=== PATIENT | female | born 1955 | race American Indian/Alaskan Native ===

== ENCOUNTER 2018-08-12 13:47 | Inpatient (IN) | payer MEDICARE ==
--- NOTE | 2018-08-12 14:17 | Emergency Department Report ---
Blank Doc - Documentation Documentation: this is a 63-year-old female that presents with CP and SOB. Was sent by PCP. This initial assessment/diagnostic orders/clinical plan/treatment(s) is/are subject to change based on patient's health status, clinical progression and re- assessment by fellow clinical providers in the ED. Further treatment and workup at subsequent clinical providers discretion. Patient/guardians urged not to elope from the ED as their condition may be serious if not clinically assessed and managed. Initial orders include: 1- Patient sent to MAIN ED for further evaluation and treatment 2- labs 3- EKg 4- CXR
[2018-08-12 14:42] LABS: Basophils % (Auto) 0.5 % (0.0-1.8); Eosinophils # (Auto) 0.1 K/mm3 (0.0-0.4); Eosinophils % (Auto) 2.1 % (0.0-4.3); Hematocrit 39.5 % (30.3-42.9); Hemoglobin 12.2 gm/dl (10.1-14.3); Lymphocytes # (Auto) 0.9 K/mm3 (1.2-5.4); Mean Corpuscular HGB Conc 31 % (30-34); Mean Corpuscular Volume 74 fl (79-97); Monocytes # (Auto) 0.6 K/mm3 (0.0-0.8); Platelet Count 307 K/mm3 (140-440); Red Blood Count 5.35 M/mm3 (3.65-5.03)
[2018-08-12 14:49] LABS: Red Cell Distribution Width 21.3 % (13.2-15.2)
[2018-08-12 14:54] LABS: INR 1.13 (0.87-1.13)
[2018-08-12 14:55] LABS: Partial Thromboplastin Time 33.2 Sec. (24.2-36.6)
--- NOTE | 2018-08-12 16:02 | XRay Report ---
PROCEDURE: XR CHEST ROUTINE 2V TECHNIQUE: PA and lateral views of the chest HISTORY: Dyspnea COMPARISONS: Chest x-ray dated August 08, 2017 FINDINGS: There is coarsening of the interstitial markings in both lungs with patchy areas of pulmonary consoli dation in the perihilar regions bilaterally and lung bases bilaterally. There is no evidence of pneumothorax and no definite evidence of pleural effusion. The cardiac silhouette is enlarged. There is prominence of the pulmonary venous vasculature consistent with pulmonary venous congestion. The thoracic aorta is tortuous with atherosclerotic vascular calcification. The bony structures are unremarkable. IMPRESSION: 1. Enlarged cardiac silhouette with bilateral interstitial and airspace process and evidence of pulmo nary venous congestion. This is most suggestive of CHF. A component of an infectious process cannot e ntirely be excluded. This document is electronically signed by Belkis Deng MD., August 12 2018 04:00:37 PM ET
[2018-08-12 16:10] LABS: Creatine Kinase MB 2.4 ng/mL (0.0-4.0)
[2018-08-12 16:11] LABS: Alanine Aminotransferase 9 units/L (7-56); Albumin 3.6 g/dL (3.9-5); BUN/Creatinine Ratio 10; Blood Urea Nitrogen 9 mg/dL (7-17); Calcium 8.8 mg/dL (8.4-10.2); Hemolysis Index 0
[2018-08-12] MEDS ORDERED: LASIX IV ONE ×2 (21:02→23:25)
[2018-08-12] MEDS ORDERED: BABY ASPIRIN PO ONE (21:03)
--- NOTE | 2018-08-12 21:03 | Emergency Department Report ---
ED General Adult HPI - General Chief complaint: Dyspnea/Respdistress Stated complaint: SOB/ELEVATED HEART RATE Time Seen by Provider: 08/12/18 14:16 Source: patient, RN notes reviewed, old records reviewed Limitations: Physical Limitation, Other (patient is a poor historian) - History of Present Illness Initial comments: This is a 63-year-old female. The patient has a past medical history of chronic pulmonary hypertension, chronic respiratory failure, on home oxygen, congestive heart failure, cardiomyopathy, ejection fraction 40-45%, cardiac catheterization in February 2018, which demonstrated pulmonary hypertension, schizophrenia, now presenting to the emergency room with abdominal distention, lower extremity swelling, shortness of breath. She reports the symptoms started today. She reports that they're constant. She reports compliance with her medications. She denies dietary indiscretions. She denies physical pain, fevers, admits to cough. She has chronic orthopnea. She still complained of headache or neck pain, denies chest pain, reports abdominal swelling, but denies abdominal pain, and endorses lower extremity swelling without pain. -: Gradual Severity scale (0 -10): 0 Consistency: constant Improves with: rest Worsens with: movement Associated Symptoms: shortness of breath - Related Data Home Medications Medication Instructions Recorded Confirmed Last Taken Tadalafil (Nf) [Adcirca (Nf)] 40 mg PO QHS 08/08/17 02/20/18 02/19/18 Ambrisentan [Letairis] 10 mg PO QAM 08/09/17 08/12/18 02/20/18 Allopurinol 300 mg PO QHS 02/20/18 08/12/18 02/19/18 Benztropine [Cogentin] 2 mg PO BID 02/20/18 02/20/18 02/20/18 06:30 Cholecalciferol (Vitamin D3) 2,000 unit PO QDAY 02/20/18 02/20/18 02/19/18 [Vitamin D3 2,000 UNIT CAP] Furosemide [Lasix TAB] 20 mg PO PRN PRN 02/20/18 02/20/18 02/19/18 Haloperidol [Haldol] 10 mg PO QHS 02/20/18 08/12/18 02/19/18 Ibuprofen [Ibu] 800 mg PO TID PRN 02/20/18 02/20/18 Unknown Magnesium Oxide [Mag-Ox] 400 mg PO QPM 02/20/18 08/12/18 02/19/18 Multivitamin/Iron/Folic Acid 1 each PO QPM 02/20/18 08/12/18 02/19/18 [Centrum Adults Tablet] [place]-3S/Dha/Epa/Fish Oil [[place]-3 1 each PO DAILY 02/20/18 08/12/18 02/19/18 Fish Oil 1,000 mg Sfgl] Ambrisentan [Letairis] 10 mg PO 08/12/18 Unknown Colchicine 0.6 mg PO 08/12/18 Unknown Cyanocobalamin (Vitamin B-12) 500 mcg 08/12/18 Unknown [Vitamin B-12] Digoxin [Lanoxin] 0.125 mg PO Q48HR 08/12/18 08/12/18 Unknown LORazepam [Ativan] 1 mg PRN 08/12/18 08/12/18 Unknown Paxil 10 mg 08/12/18 Unknown Riociguat [Adempas] 2.5 mg PO 08/12/18 Unknown Torsemide [Demadex] 40 mg PO 08/12/18 Unknown Previous Rx's Medication Instructions Recorded Last Taken Type Aspirin [Aspirin BABY CHEW TAB] 81 mg PO QDAY #30 tab.chew 01/20/17 02/20/18 06:30 Rx Esomeprazole Magnesium [NexIUM] 40 mg PO QDAY #30 capsule.dr 01/20/17 02/20/18 06:30 Rx Digoxin [Lanoxin] 0.125 mg PO Q48HR@1700 #15 tablet 08/12/17 02/18/18 Rx Letairis 10 mg PO QDAY 08/12/17 02/20/18 06:30 Rx PARoxetine [Paxil] 10 mg PO DAILY #30 tablet 08/12/17 02/20/18 06:30 Rx Tadalafil 40 mg PO QDAY 08/12/17 02/19/18 Rx Allergies Allergy/AdvReac Type Severity Reaction Status Date / Time No Known Allergies Allergy Verified 08/08/17 13:29 ED Review of Systems ROS: Stated complaint: SOB/ELEVATED HEART RATE Other details as noted in HPI Constitutional: malaise Eyes: denies: vision change ENT: congestion Respiratory: cough, shortness of breath, SOB with exertion, SOB at rest, wheezing Cardiovascular: edema. denies: chest pain Gastrointestinal: denies: nausea, vomiting Genitourinary: denies: dysuria Musculoskeletal: arthralgia, myalgia, other (lower extremity swelling) Skin: denies: lesions Neurological: weakness Psychiatric: anxiety ED Past Medical Hx - Past Medical History Hx Hypertension: Yes (pulm. Htn) Hx Heart Attack/AMI: No Hx Congestive Heart Failure: Yes (new onset diagnosis with this admission) Hx Diabetes: No Hx Arthritis: Yes (polyarticular) Hx Psychiatric Treatment: Yes (schizophrenia) Hx Asthma: No Hx COPD: No Hx HIV: No Additional medical history: psoryosis. esophageal - Surgical History Additional Surgical History: esophageal - Social History Smoking Status: Never Smoker Substance Use Type: None - Medications Home Medications: Home Medications Medication Instructions Recorded Confirmed Last Taken Type Aspirin [Aspirin BABY CHEW TAB] 81 mg PO QDAY #30 tab.chew 01/20/17 08/12/18 02/20/18 06:30 Rx Esomeprazole Magnesium [NexIUM] 40 mg PO QDAY #30 capsule. 01/20/17 08/12/18 02/20/18 06:30 Rx Tadalafil (Nf) [Adcirca (Nf)] 40 mg PO QHS 08/08/17 02/20/18 02/19/18 History Ambrisentan [Letairis] 10 mg PO QAM 08/09/17 08/12/18 02/20/18 History Digoxin [Lanoxin] 0.125 mg PO Q48HR@1700 #15 tablet 08/12/17 08/12/18 02/18/18 Rx Letairis 10 mg PO QDAY 08/12/17 02/20/18 02/20/18 06:30 Rx PARoxetine [Paxil] 10 mg PO DAILY #30 tablet 08/12/17 08/12/18 02/20/18 06:30 Rx Tadalafil 40 mg PO QDAY 08/12/17 02/20/18 02/19/18 Rx Allopurinol 300 mg PO QHS 02/20/18 08/12/18 02/19/18 History Benztropine [Cogentin] 2 mg PO BID 02/20/18 02/20/18 02/20/18 06:30 History Cholecalciferol (Vitamin D3) 2,000 unit PO QDAY 02/20/18 02/20/18 02/19/18 History [Vitamin D3 2,000 UNIT CAP] Furosemide [Lasix TAB] 20 mg PO PRN PRN 02/20/18 02/20/18 02/19/18 History Haloperidol [Haldol] 10 mg PO QHS 02/20/18 08/12/18 02/19/18 History Ibuprofen [Ibu] 800 mg PO TID PRN 02/20/18 02/20/18 Unknown History Magnesium Oxide [Mag-Ox] 400 mg PO QPM 02/20/18 08/12/18 02/19/18 History Multivitamin/Iron/Folic Acid 1 each PO QPM 02/20/18 08/12/18 02/19/18 History [Centrum Adults Tablet] [place]-3S/Dha/Epa/Fish Oil [[place]-3 1 each PO DAILY 02/20/18 08/12/18 02/19/18 History Fish Oil 1,000 mg Sfgl] Ambrisentan [Letairis] 10 mg PO 08/12/18 Unknown History Colchicine 0.6 mg PO 08/12/18 Unknown History Cyanocobalamin (Vitamin B-12) 500 mcg 08/12/18 Unknown History [Vitamin B-12] Digoxin [Lanoxin] 0.125 mg PO Q48HR 08/12/18 08/12/18 Unknown History LORazepam [Ativan] 1 mg PRN 08/12/18 08/12/18 Unknown History Paxil 10 mg 08/12/18 Unknown History Riociguat [Adempas] 2.5 mg PO 08/12/18 Unknown History Torsemide [Demadex] 40 mg PO 08/12/18 Unknown History ED Physical Exam - General Limitations: Physical Limitation General appearance: alert, anxious, in distress, obese - Head Head exam: Present: atraumatic, normocephalic - Eye Eye exam: Present: normal appearance, EOMI - ENT ENT exam: Present: normal exam, normal orophraynx, mucous membranes moist, normal external ear exam - Neck Neck exam: Present: normal inspection, full ROM. Absent: tenderness, meningismus - Respiratory Respiratory exam: Present: rales, rhonchi. Absent: respiratory distress - Cardiovascular Cardiovascular Exam: Present: regular rate, normal rhythm, normal heart sounds. Absent: bradycardia, tachycardia, irregular rhythm, systolic murmur, diastolic murmur, rubs, gallop - GI/Abdominal GI/Abdominal exam: Present: soft, distended, other (abdominal anasarca is appreciated). Absent: tenderness, guarding, rebound, rigid, pulsatile mass - Extremities Exam Extremities exam: Present: normal inspection, full ROM, pedal edema, other (2+ pulses noted in the bilateral upper, lower extremities. Compartments soft. No long bony tenderness. The pelvis is stable.). Absent: calf tenderness - Back Exam Back exam: Present: normal inspection, full ROM. Absent: tenderness, CVA tenderness (R), paraspinal tenderness, vertebral tenderness - Neurological Exam Neurological exam: Present: alert, other (Extraocular movements intact. Tongue midline. No facial droop. Facial sensation intact to light touch in the V1, V2, V3 distribution bilaterally. 5 and 5 strength in 4 extremities.. Sensation is intact to light touch in 4 extremities.). Absent: motor sensory deficit - Psychiatric Psychiatric exam: Present: anxious - Skin Skin exam: Present: warm, dry, intact, normal color. Absent: rash ED Course Vital Signs 08/12/18 08/12/18 08/12/18 14:12 20:06 20:46 Temperature 97.6 F 98.2 F Pulse Rate 99 H 116 H 124 H Respiratory 22 22 16 Rate Blood Pressure 111/55 135/62 O2 Sat by Pulse 92 88 90 Oximetry 08/12/18 08/12/18 08/12/18 20:48 20:50 20:52 Temperature Pulse Rate 116 H 110 H 111 H Respiratory 16 19 15 Rate Blood Pressure 128/68 128/68 128/68 O2 Sat by Pulse 89 93 91 Oximetry 08/12/18 08/12/18 08/12/18 20:54 20:56 20:57 Temperature 98.3 F Pulse Rate 112 H 116 H Respiratory 16 21 Rate Blood Pressure 128/68 128/68 O2 Sat by Pulse 94 Oximetry 08/12/18 08/12/18 08/12/18 20:58 22:06 22:08 Temperature Pulse Rate 106 H 111 H Respiratory 24 20 17 Rate Blood Pressure 116/53 116/53 O2 Sat by Pulse 90 95 91 Oximetry 08/12/18 08/12/18 08/12/18 22:10 22:12 22:14 Temperature Pulse Rate 119 H 125 H 117 H Respiratory 16 18 15 Rate Blood Pressure 116/53 116/53 116/53 O2 Sat by Pulse 96 96 97 Oximetry 08/12/18 08/12/18 08/12/18 22:16 22:18 22:20 Temperature Pulse Rate 108 H 109 H 113 H Respiratory 19 15 15 Rate Blood Pressure 116/53 116/53 116/53 O2 Sat by Pulse 94 94 96 Oximetry 08/12/18 08/12/18 08/12/18 22:22 22:24 22:26 Temperature Pulse Rate 111 H 111 H 107 H Respiratory 14 13 16 Rate Blood Pressure 116/53 116/53 116/53 O2 Sat by Pulse 97 97 96 Oximetry 08/12/18 08/12/18 08/12/18 22:28 22:30 22:32 Temperature Pulse Rate 108 H 105 H 106 H Respiratory 16 17 14 Rate Blood Pressure 116/53 115/68 115/68 O2 Sat by Pulse 98 96 97 Oximetry 08/12/18 08/12/18 08/12/18 22:34 22:36 22:38 Temperature Pulse Rate 118 H 113 H 113 H Respiratory 16 16 17 Rate Blood Pressure 115/68 115/68 115/68 O2 Sat by Pulse 98 96 96 Oximetry 08/12/18 08/12/18 08/12/18 22:40 22:42 22:44 Temperature Pulse Rate 121 H 116 H 122 H Respiratory 15 28 H 17 Rate Blood Pressure 115/68 115/68 115/68 O2 Sat by Pulse 95 90 92 Oximetry 08/12/18 08/12/18 08/12/18 22:46 22:48 22:50 Temperature Pulse Rate 122 H 129 H 116 H Respiratory 16 22 16 Rate Blood Pressure 115/68 115/68 115/68 O2 Sat by Pulse 93 72 L 87 Oximetry 08/12/18 08/12/18 08/12/18 22:52 22:54 22:56 Temperature Pulse Rate 118 H 124 H 126 H Respiratory 17 18 18 Rate Blood Pressure 115/68 115/68 115/68 O2 Sat by Pulse 88 94 90 Oximetry 08/12/18 08/12/18 08/12/18 22:58 23:00 23:02 Temperature Pulse Rate 113 H 117 H 120 H Respiratory 17 15 17 Rate Blood Pressure 115/68 128/69 128/69 O2 Sat by Pulse 96 94 95 Oximetry 08/12/18 08/12/18 08/12/18 23:04 23:06 23:08 Temperature Pulse Rate 107 H 123 H 126 H Respiratory 16 17 18 Rate Blood Pressure 128/69 128/69 128/69 O2 Sat by Pulse 94 95 93 Oximetry 08/12/18 08/12/18 08/12/18 23:10 23:12 23:14 Temperature Pulse Rate 116 H 113 H 113 H Respiratory 16 15 17 Rate Blood Pressure 128/69 128/69 128/69 O2 Sat by Pulse 91 93 93 Oximetry 08/12/18 08/12/18 08/12/18 23:16 23:18 23:20 Temperature Pulse Rate 122 H 105 H 108 H Respiratory 15 19 12 Rate Blood Pressure 128/69 128/69 128/69 O2 Sat by Pulse 95 95 96 Oximetry 08/12/18 08/12/18 08/12/18 23:22 23:24 23:26 Temperature Pulse Rate 121 H 109 H 115 H Respiratory 15 14 15 Rate Blood Pressure 128/69 128/69 128/69 O2 Sat by Pulse 95 96 97 Oximetry 08/12/18 08/12/18 08/12/18 23:28 23:30 23:32 Temperature Pulse Rate 120 H 106 H 107 H Respiratory 19 14 17 Rate Blood Pressure 128/69 121/60 121/60 O2 Sat by Pulse 95 94 96 Oximetry 08/12/18 08/12/18 08/12/18 23:34 23:36 23:38 Temperature Pulse Rate 106 H 115 H 113 H Respiratory 15 15 14 Rate Blood Pressure 121/60 121/60 121/60 O2 Sat by Pulse 97 94 96 Oximetry 08/12/18 08/12/18 08/12/18 23:40 23:42 23:44 Temperature Pulse Rate 106 H 109 H 121 H Respiratory 16 14 15 Rate Blood Pressure 121/60 121/60 121/60 O2 Sat by Pulse 97 95 97 Oximetry ED Medical Decision Making - Lab Data Result diagrams: 08/12/18 14:22 08/12/18 14:22 Vital Signs 08/12/18 08/12/18 08/12/18 14:12 20:06 20:46 Temperature 97.6 F 98.2 F Pulse Rate 99 H 116 H 124 H Respiratory 22 22 16 Rate Blood Pressure 111/55 135/62 O2 Sat by Pulse 92 88 90 Oximetry 08/12/18 08/12/18 08/12/18 20:48 20:50 20:52 Temperature Pulse Rate 116 H 110 H 111 H Respiratory 16 19 15 Rate Blood Pressure 128/68 128/68 128/68 O2 Sat by Pulse 89 93 91 Oximetry 08/12/18 08/12/18 08/12/18 20:54 20:56 20:57 Temperature 98.3 F Pulse Rate 112 H 116 H Respiratory 16 21 Rate Blood Pressure 128/68 128/68 O2 Sat by Pulse 94 Oximetry 08/12/18 20:58 Temperature Pulse Rate Respiratory 24 Rate Blood Pressure O2 Sat by Pulse 90 Oximetry Lab Results 08/12/18 08/12/18 08/12/18 Range/Units 14:22 14:22 14:22 WBC 5.2 (4.5-11.0) K/mm3 RBC 5.35 H (3.65-5.03) M/mm3 Hgb 12.2 (10.1-14.3) gm/dl Hct 39.5 (30.3-42.9) % MCV 74 L (79-97) fl MCH 23 L (28-32) pg MCHC 31 (30-34) % RDW 21.3 H (13.2-15.2) % Plt Count 307 (140-440) K/mm3 Lymph % (Auto) 18.0 (13.4-35.0) % Sanders % (Auto) 12.0 H (0.0-7.3) % Eos % (Auto) 2.1 (0.0-4.3) % Baso % (Auto) 0.5 (0.0-1.8) % Lymph # 0.9 L (1.2-5.4) K/mm3 Sanders # 0.6 (0.0-0.8) K/mm3 Eos # 0.1 (0.0-0.4) K/mm3 Baso # 0.0 (0.0-0.1) K/mm3 Seg Neutrophils % 67.4 (40.0-70.0) % Seg Neutrophils # 3.5 (1.8-7.7) K/mm3 PT 15.2 H (12.2-14.9) Sec. INR 1.13 (0.87-1.13) APTT 33.2 (24.2-36.6) Sec. Sodium 134 L (137-145) mmol/L Potassium 3.4 L (3.6-5.0) mmol/L Chloride 90.3 L (98-107) mmol/L Carbon Dioxide 30 (22-30) mmol/L Anion Gap 17 mmol/L BUN 9 (7-17) mg/dL Creatinine 0.9 (0.7-1.2) mg/dL Estimated GFR > 60 ml/min BUN/Creatinine Ratio 10 % Glucose 96 (65-100) mg/dL Calcium 8.8 (8.4-10.2) mg/dL Total Bilirubin 1.00 (0.1-1.2) mg/dL AST 20 (5-40) units/L ALT 9 (7-56) units/L Alkaline Phosphatase 144 H (35-129) units/L Total Creatine Kinase 57 (30-135) units/L CK-MB (CK-2) 2.4 (0.0-4.0) ng/mL CK-MB (CK-2) Rel Index 4.2 H (0-4) Troponin T < 0.010 (0.00-0.029) ng/mL Total Protein 6.9 (6.3-8.2) g/dL Albumin 3.6 L (3.9-5) g/dL Albumin/Globulin Ratio 1.1 % - EKG Data -: EKG Interpreted by Pa EKG shows normal: sinus rhythm Rate: normal - EKG Data 08/12/18 23:54 EKG today shows a sinus tachycardia, 107 8 for minutes, borderline rightward axis, motion artifact, low voltage, prolonged CA interval, premature ventricular complex, not having chest pain, not consistent with ST elevation myocardial infarction, nonspecific ST abnormalities, appears grossly unchanged from prior EKG from 02/20/2018. - Radiology Data Radiology results: report reviewed, image reviewed Print Report Referring Physician: ERICH FARAH Patient Name: CORAZON QUINONES Date of : 1955 Sex: Female Report Date: 2018-08-12 Report Status: Finalized Findings [facility] [address] [place] [address] XRay Report Signed Patient: CORAZON QUINONES MR#: [id number] : 1955 Acct:[id number] Age/Sex: 63 / F ADM Date: 08/12/18 Loc: ED Attending Dr: Ordering Physician: ERICH FARAH NP Date of Service: 08/12/18 Procedure(s): XR chest routine 2V Accession Number(s): [id number] cc: ERICH FARAH NP Fluoro Time In Minutes: PROCEDURE: XR CHEST ROUTINE 2V TECHNIQUE: PA and lateral views of the chest HISTORY: Dyspnea COMPARISONS: Chest x-ray dated August 08, 2017 FINDINGS: There is coarsening of the interstitial markings in both lungs with patchy areas of pulmonary consolidation in the perihilar regions bilaterally and lung bases bilaterally. There is no evidence of pneumothorax and no definite evidence of pleural effusion. The cardiac silhouette is enlarged. There is prominence of the pulmonary venous vasculature consistent with pulmonary venous congestion. The thoracic aorta is tortuous with atherosclerotic vascular calcification. The bony structures are unremarkable. IMPRESSION: 1. Enlarged cardiac silhouette with bilateral interstitial and airspace process and evidence of pulmonary venous congestion. This is most suggestive of CHF. A component of an infectious process cannot entirely be excluded. This document is electronically signed by Belkis Deng MD., August 12 2018 04:00:37 PM ET Transcribed By: ED Dictated By: BELKIS DENG MD Electronically Authenticated By: BELKIS DENG MD Signed Date/Time: 08/12/18 1602 DD/ 1530 TD/TT: 08/12/18 1531 - Medical Decision Making Differential diagnosis, including but not limited to: Pulmonary hypertension, right-sided heart failure, cor pulmonale, congestive heart failure, fluid overload Assessment and plan: 63-year-old female with clinical evidence of fluid overload, manifest by abdominal anasarca, lower extremity edema, hypoxia, crackles, rales, x-ray of the chest findings. Do not clinically suspect pneumonia or infectious etiology at this time. She has no pain at this time. She reports no pulmonary embolus or DVT risk factors, and I find the patient to be low risk by well's criteria. [facility] accounts payable representative, Dr. Zenon Sears, who agrees with admission, diuresis, and indicates his group can and will follow in consultation. Contacted Hospital physician, Dr. Jany Sears, who has agreed to do the patient to the medical service for congestive heart failure. Discussed admission with the patient, who verbalizes understanding, and who is amenable to this plan of care this time. Critical Care Time: Yes Critical care time in (mins) excluding proc time.: 45 Critical care attestation.: If time is entered above; I have spent that time in minutes in the direct care of this critically ill patient, excluding procedure time. ED Disposition Clinical Impression: Pleural effusion, Anasarca, Pulmonary hypertension, Cardiomyopathy, Cor pulmonale, Hypoxia, Dyspnea Disposition: DC-09 OP ADMIT IP TO THIS HOSP Is pt being admited?: Yes Does the pt Need Aspirin: Yes Condition: Fair
--- NOTE | 2018-08-12 22:21 | History and Physical Report ---
History of Present Illness Date of examination: 08/12/18 History of present illness: 63-year-old woman is here for hypertension, diabetes, schizophrenia, CHF, pulmonary hypertension comes emergency room with complaints of shortness of breath, swelling of her legs, weight gain 1 week. She is noncompliant with fluid intake Review of systems Constitutional: no weight loss, chills, fever Ears, eyes, nose, mouth and throat: no nasal congestion, no nasal discharge, no sinus pressure, no vision change, no red eye. Neck: No neck pain or rigidity. Cardiovascular: no palpitations, chest pain Respiratory: no cough Gastrointestinal: no hematochezia, abdominal pain Genitourinary : no frequency , no hematuria Musculoskeletal: no joint swelling or muscle ache Integumentary: no rash, no pruritis Neurological: no parathesias, no focal weakness Endocrine: no cold or heat intolerance, no polyuria or polydipsia Hematologic/Lymphatic: no easy bruising, no easy bleeding, no gland swelling Allergic/Immunologic: no urticaria, no angioedema. PAST MEDICAL HISTORY:hypertension, diabetes, schizophrenia, CHF, pulmonary hypertension PAST SURGICAL HISTORY: None FAmILY HISTORY: Hypertension SOCIAL HISTORY: no smoking, alcohol or drugs Medications and Allergies Allergies Allergy/AdvReac Type Severity Reaction Status Date / Time No Known Allergies Allergy Verified 08/08/17 13:29 Home Medications Medication Instructions Recorded Confirmed Last Taken Type Aspirin [Aspirin BABY CHEW TAB] 81 mg PO QDAY #30 tab.chew 01/20/17 08/12/18 02/20/18 06:30 Rx Esomeprazole Magnesium [NexIUM] 40 mg PO QDAY #30 capsule. 01/20/17 08/12/18 02/20/18 06:30 Rx Ambrisentan [Letairis] 10 mg PO QHS 08/09/17 08/13/18 02/20/18 History Digoxin [Lanoxin] 0.125 mg PO Q48HR@1700 #15 tablet 08/12/17 08/13/18 08/11/18 21:00 Rx PARoxetine [Paxil] 10 mg PO DAILY #30 tablet 08/12/17 08/12/18 02/20/18 06:30 Rx Allopurinol 300 mg PO QHS 02/20/18 08/12/18 02/19/18 History Benztropine [Cogentin] 2 mg PO DAILY 02/20/18 08/13/18 02/20/18 06:30 History Cholecalciferol (Vitamin D3) 2,000 unit PO QDAY 02/20/18 08/13/18 02/19/18 History [Vitamin D3 2,000 UNIT CAP] Haloperidol [Haldol] 10 mg PO QHS 02/20/18 08/12/18 02/19/18 History Ibuprofen [Ibu] 800 mg PO TID PRN 02/20/18 08/13/18 Unknown History Magnesium Oxide [Mag-Ox] 400 mg PO QPM 02/20/18 08/12/18 02/19/18 History Multivitamin/Iron/Folic Acid 1 each PO QPM 02/20/18 08/12/18 02/19/18 History [Centrum Adults Tablet] [place]-3S/Dha/Epa/Fish Oil [[place]-3 1 each PO DAILY 02/20/18 08/12/18 02/19/18 History Fish Oil 1,000 mg Sfgl] Colchicine 0.6 mg PO PRN PRN 08/12/18 08/13/18 Unknown History Cyanocobalamin (Vitamin B-12) 500 mcg PO DAILY 08/12/18 08/13/18 Unknown History [Vitamin B-12] LORazepam [Ativan] 1 mg PRN 08/12/18 08/12/18 Unknown History Paxil 10 mg PO DAILY 08/12/18 08/13/18 Unknown History Riociguat [Adempas] 2.5 mg PO TID 08/12/18 08/13/18 Unknown History Digoxin [Lanoxin] 0.125 mg PO Q48H tablet 08/16/18 Unknown Rx Torsemide [Demadex] 20 mg PO DAILY #30 tablet 08/16/18 Unknown Rx Exam - Physical Exam Narrative exam: Gen. appearance: Patient lying in bed in no acute distress HEENT: Normocephalic/atraumatic, pupils equal round reactive to light, extra alkaline movement intact, no scleral icterus, no JVD or thyromegaly or nodule, neck is supple, mucous membrane moist, no erythema or exudate Heart: S1-S2, regular rate and rhythm Lungs: Crackles bilateral breathing comfortable Abdomen: Positive bowel sounds, nontender, nondistended, no organomegaly Extremities: +edema, cyanosis, clubbing Neuro:: Oriented 3 , cranial nerves II-12 intact, speech, motor intact Skin: No rash, nodules, warm dry - Constitutional Vitals: Temp Pulse Resp BP Pulse Ox 98.3 F 116 H 24 128/68 90 08/12/18 20:57 08/12/18 20:56 08/12/18 20:58 08/12/18 20:56 08/12/18 20:58 Results - Labs CBC & Chem 7: 08/13/18 05:21 08/15/18 04:35 Labs: Abnormal lab results 08/12/18 08/12/18 08/12/18 Range/Units 14:22 14:22 14:22 RBC 5.35 H (3.65-5.03) M/mm3 MCV 74 L (79-97) fl MCH 23 L (28-32) pg RDW 21.3 H (13.2-15.2) % [place] % (Auto) 12.0 H (0.0-7.3) % Lymph # 0.9 L (1.2-5.4) K/mm3 PT 15.2 H (12.2-14.9) Sec. Sodium 134 L (137-145) mmol/L Potassium 3.4 L (3.6-5.0) mmol/L Chloride 90.3 L (98-107) mmol/L Alkaline Phosphatase 144 H (35-129) units/L CK-MB (CK-2) Rel Index 4.2 H (0-4) NT-Pro-B Natriuret Pep (0-900) pg/mL Albumin 3.6 L (3.9-5) g/dL Digoxin (0.9-2.0) ng/mL 08/12/18 08/12/18 Range/Units 21:05 21:05 RBC (3.65-5.03) M/mm3 MCV (79-97) fl MCH (28-32) pg RDW (13.2-15.2) % [place] % (Auto) (0.0-7.3) % Lymph # (1.2-5.4) K/mm3 PT (12.2-14.9) Sec. Sodium (137-145) mmol/L Potassium (3.6-5.0) mmol/L Chloride (98-107) mmol/L Alkaline Phosphatase (35-129) units/L CK-MB (CK-2) Rel Index (0-4) NT-Pro-B Natriuret Pep 2915 H (0-900) pg/mL Albumin (3.9-5) g/dL Digoxin 0.4 L (0.9-2.0) ng/mL - Imaging and Cardiology EKG: image reviewed Chest x-ray: report reviewed Assessment and Plan Assessment CHF, diastolic dysfunction Hypertension Diabetes Schizophrenia Pulmonary hypertension Plan Admit to medicine Diurese with IV Lasix Carvedilol, STALIN inhibitor, aspirin Check rcardiac enzymes, echo, consult cardiology Monitor I's and O's, daily weights Check fingersticks and initiate insulin sinus Continued appropriate out patient medications Please verify patient's dosage of adempas and restart, please have her take her own medication as the insurance will not pay for this medication dispensed by the Hospital DVT prophylaxis
[2018-08-12] MEDS ORDERED: K-DUR PO ONE ×2 (22:49→23:47)
[2018-08-12] MEDS ORDERED: ZOFRAN IV PRN (22:59)
[2018-08-12] MEDS ORDERED: SODIUM CHLORIDE FLUSH SYRINGE 10 ML IV PRN (22:59)
[2018-08-12] MEDS ORDERED: TYLENOL PO PRN (22:59)
[2018-08-13 05:59] LABS: Basophils % (Auto) 0.5 % (0.0-1.8); Eosinophils # (Auto) 0.1 K/mm3 (0.0-0.4); Eosinophils % (Auto) 2.6 % (0.0-4.3); Lymphocytes # (Auto) 0.9 K/mm3 (1.2-5.4); Lymphocytes % (Auto) 15.7 % (13.4-35.0); Mean Corpuscular HGB Conc 31 % (30-34); Mean Corpuscular Volume 74 fl (79-97); Monocytes # (Auto) 0.8 K/mm3 (0.0-0.8); Monocytes % (Auto) 14.8 % (0.0-7.3); Platelet Count 312 K/mm3 (140-440); Red Blood Count 5.23 M/mm3 (3.65-5.03)
[2018-08-13 06:06] LABS: Hematocrit 38.9 % (30.3-42.9); Hemoglobin 11.9 gm/dl (10.1-14.3); Red Cell Distribution Width 21.3 % (13.2-15.2)
[2018-08-13] MEDS: LASIX IV SCH ×2 (06:17→19:51)
[2018-08-13 06:22] LABS: BUN/Creatinine Ratio 11; Blood Urea Nitrogen 8 mg/dL (7-17); Calcium 8.5 mg/dL (8.4-10.2); Hemolysis Index 1
[2018-08-13] MEDS ORDERED: COREG PO SCH (10:00)
[2018-08-13] MEDS ORDERED: NON-FORMULARY (Ambrisentan [Letairis] 10 MG) PO SCH (10:00)
--- NOTE | 2018-08-13 10:28 | Consultation ---
History of Present Illness Consult date: 08/13/18 Consult reason: congestive heart failure History of present illness: This is a 63 year old woman with a history of severe pulmonary hypertension, cor pulmonale managed medically with Adempas and home oxygen therapy. She has had extensive cardiac workup including a left cardiac catheterization in 2017 that demonstrated nonobstructive, essentially normal coronary arteries and well preserved left ventricle systolic function with ejection fraction 55%. More recently, 6 months ago, she underwent a right cardiac catheterization that revealed severe elevated pulmonary artery pressure with a mean PA pressure of 58 mmHg. Patient presented with worsening shortness of breath and palpitations. Cardiac consultation was requested. Patient denies chest pain and there was no syncope. She reports mild lower extremity edema which has since resolved. A chest x-ray is suggestive of CHF. Her ECG is sinus tachycardia with non-specific Twave changes. Medications and Allergies Allergies Allergy/AdvReac Type Severity Reaction Status Date / Time No Known Allergies Allergy Verified 08/08/17 13:29 Home Medications Medication Instructions Recorded Confirmed Last Taken Type Aspirin [Aspirin BABY CHEW TAB] 81 mg PO QDAY #30 tab.chew 01/20/17 08/12/18 02/20/18 06:30 Rx Esomeprazole Magnesium [NexIUM] 40 mg PO QDAY #30 capsule.dr 01/20/17 08/12/18 02/20/18 06:30 Rx Tadalafil (Nf) [Adcirca (Nf)] 40 mg PO QHS 08/08/17 02/20/18 02/19/18 History Ambrisentan [Letairis] 10 mg PO QAM 08/09/17 08/12/18 02/20/18 History Digoxin [Lanoxin] 0.125 mg PO Q48HR@1700 #15 tablet 08/12/17 08/12/18 02/18/18 Rx Letairis 10 mg PO QDAY 08/12/17 02/20/18 02/20/18 06:30 Rx PARoxetine [Paxil] 10 mg PO DAILY #30 tablet 08/12/17 08/12/18 02/20/18 06:30 Rx Tadalafil 40 mg PO QDAY 08/12/17 02/20/18 02/19/18 Rx Allopurinol 300 mg PO QHS 02/20/18 08/12/18 02/19/18 History Benztropine [Cogentin] 2 mg PO BID 02/20/18 02/20/18 02/20/18 06:30 History Cholecalciferol (Vitamin D3) 2,000 unit PO QDAY 02/20/18 02/20/18 02/19/18 History [Vitamin D3 2,000 UNIT CAP] Furosemide [Lasix TAB] 20 mg PO PRN PRN 02/20/18 02/20/18 02/19/18 History Haloperidol [Haldol] 10 mg PO QHS 02/20/18 08/12/18 02/19/18 History Ibuprofen [Ibu] 800 mg PO TID PRN 02/20/18 02/20/18 Unknown History Magnesium Oxide [Mag-Ox] 400 mg PO QPM 02/20/18 08/12/18 02/19/18 History Multivitamin/Iron/Folic Acid 1 each PO QPM 02/20/18 08/12/18 02/19/18 History [Centrum Adults Tablet] [place]-3S/Dha/Epa/Fish Oil [[place]-3 1 each PO DAILY 02/20/18 08/12/18 02/19/18 History Fish Oil 1,000 mg Sfgl] Ambrisentan [Letairis] 10 mg PO 08/12/18 Unknown History Colchicine 0.6 mg PO 08/12/18 Unknown History Cyanocobalamin (Vitamin B-12) 500 mcg 08/12/18 Unknown History [Vitamin B-12] Digoxin [Lanoxin] 0.125 mg PO Q48HR 08/12/18 08/12/18 Unknown History LORazepam [Ativan] 1 mg PRN 08/12/18 08/12/18 Unknown History Paxil 10 mg 08/12/18 Unknown History Riociguat [Adempas] 2.5 mg PO 08/12/18 Unknown History Torsemide [Demadex] 40 mg PO 08/12/18 Unknown History Active Meds: Active Medications Acetaminophen (Tylenol) 650 mg PO Q4H PRN PRN Reason: Pain MILD(1-3)/Fever >100.5/[place] Allopurinol (Zyloprim) 300 mg PO QHS [facility] Aspirin (Baby Aspirin) 81 mg PO QDAY [facility] Benztropine Mesylate (Cogentin) 2 mg PO BID [facility]AN Carvedilol (Coreg) 3.125 mg PO BID [facility]AN Cholecalciferol (Vitamin D3) 2,000 unit PO QDAY [facility] Digoxin (Lanoxin) 0.125 mg PO Q48H [facility] Enoxaparin Sodium (Lovenox) 40 mg SUB-Q QDAY [facility] Furosemide (Lasix) 40 mg IV BID@0600,1800 [facility] Last Admin: 08/13/18 06:17 Dose: 40 mg Documented by: Haloperidol (Haldol) 10 mg PO QHS [facility] Lisinopril (Zestril) 2.5 mg PO QDAY@0800 [facility] Miscellaneous Medication (Ambrisentan [Letairis]) 10 mg PO QAM [facility] Miscellaneous Medication (Tadalafil (Nf)) 40 mg PO QHS [facility] Multivitamins (Theragran Tab) 1 each PO DAILY [facility] Ondansetron HCl (Zofran) 4 mg IV Q8H PRN PRN Reason: Nausea And Vomiting Pantoprazole Sodium (Protonix) 40 mg PO QDAY [facility] Paroxetine HCl (Paxil) 10 mg PO DAILY [facility] Sodium Chloride (Sodium Chloride Flush Syringe 10 Ml) 10 ml IV BID [facility] Sodium Chloride (Sodium Chloride Flush Syringe 10 Ml) 10 ml IV PRN PRN PRN Reason: LINE FLUSH Physical Examination Vital Signs Temp Pulse Resp BP Pulse Ox 97.6 F 99 H 22 111/55 92 08/12/18 14:12 08/12/18 14:12 08/12/18 14:12 08/12/18 14:12 08/12/18 14:12 General appearance: no acute distress HEENT: Positive: PERRL Neck: Positive: trachea midline Cardiac: Positive: Tachycardia Lungs: Positive: Decreased Breath Sounds Neuro: Positive: Grossly Intact Extremities: Absent: edema Results 08/13/18 05:21 08/13/18 05:21 Cardiac Enzymes 08/12/18 Range/Units 14:22 AST 20 (5-40) units/L CK-MB (CK-2) 2.4 (0.0-4.0) ng/mL Coagulation 08/12/18 Range/Units 14:22 PT 15.2 H (12.2-14.9) Sec. INR 1.13 (0.87-1.13) APTT 33.2 (24.2-36.6) Sec. CBC 08/12/18 08/13/18 Range/Units 14:22 05:21 WBC 5.2 5.5 (4.5-11.0) K/mm3 RBC 5.35 H 5.23 H (3.65-5.03) M/mm3 Hgb 12.2 11.9 (10.1-14.3) gm/dl Hct 39.5 38.9 (30.3-42.9) % Plt Count 307 312 (140-440) K/mm3 Lymph # 0.9 L 0.9 L (1.2-5.4) K/mm3 [place] # 0.6 0.8 (0.0-0.8) K/mm3 Eos # 0.1 0.1 (0.0-0.4) K/mm3 Baso # 0.0 0.0 (0.0-0.1) K/mm3 Comprehensive Metabolic Panel 08/12/18 08/13/18 Range/Units 14:22 05:21 Sodium 134 L 136 L (137-145) mmol/L Potassium 3.4 L 3.6 (3.6-5.0) mmol/L Chloride 90.3 L 94.3 L (98-107) mmol/L Carbon Dioxide 30 29 (22-30) mmol/L BUN 9 8 (7-17) mg/dL Creatinine 0.9 0.7 (0.7-1.2) mg/dL Glucose 96 101 H (65-100) mg/dL Calcium 8.8 8.5 (8.4-10.2) mg/dL AST 20 (5-40) units/L ALT 9 (7-56) units/L Alkaline Phosphatase 144 H (35-129) units/L Total Protein 6.9 (6.3-8.2) g/dL Albumin 3.6 L (3.9-5) g/dL Assessment and Plan Cor pulmonale Severe Pulmonary Htn Rheumatoid arthritis C in 2016 that demonstrated nonobstructive, essentially normal coronary arteries ejection fraction 55%. RHC 02/2018 revealed severe elevated pulmonary artery pressure with a mean PA pressure of 58 mmHg.
[2018-08-13] MEDS: THERAGRAN Tab PO SCH (10:59)
[2018-08-13] MEDS: BABY ASPIRIN PO SCH (10:59)
[2018-08-13] MEDS: LOVENOX SUB-Q SCH (10:59)
[2018-08-13] MEDS: VITAMIN D3 PO SCH (10:59)
[2018-08-13] MEDS: PROTONIX PO SCH (10:59)
[2018-08-13] MEDS: COGENTIN PO SCH ×2 (10:59→21:49)
[2018-08-13] MEDS: SODIUM CHLORIDE FLUSH SYRINGE 10 ML IV SCH ×2 (10:59→21:51)
[2018-08-13] MEDS: ZESTRIL PO SCH (12:32)
[2018-08-13] MEDS: PAXIL PO SCH (12:32)
--- NOTE | 2018-08-13 14:29 | Event Note ---
Date: 08/13/18 63-year-old woman with COPD, chronic severe pulmonary hypertension and cor pulmonale, on home oxygen therapy. She has been on chronic oral medical therapy for her pulmonary hypertension. She presents to the hospital with shortness of breath, palpitations on referral from her primary rn rehab. ECG is a multifocal atrial tachycardia, with an underlying right bundle branch block, no acute ischemic changes. Chest x-ray showed marked cardiomegaly, with fine granular opacities in both lung gotti, questionable pulmonary fibrosis, but no evidence of interstitial lung edema or left heart failure. Echocardiogram today shows that most of her cardiomegaly involves severe dilatation of the right heart chambers, the right ventricle is Parks forming, there is flattening of the intra-atrial septum, at least moderate cusp regurgitation and moderate to severe pulmonary hypertension with right ventricul ar systolic pressure of 56. Conversely, left ventricular chamber size and systolic function are normal with ejection fraction 50-55%. There is a [id number] degree of mitral valve prolapse, with mild to moderate mitral regurgitation. Recommendations: Patient's symptoms and presentation are consistent with exacerbation of her COPD and her chronic pulmonary hypertension and cor pulmonale. There is no clinical or radiologic evidence of left-sided failure or dysfunction. Coronary angiography a little over a year ago demonstrated no significant coronary disease. Multifocal atrial tachycardia and right bundle branch block are consistent with her pulmonary disease, and will be treated with Cardizem. Recommend pulmonary consultation for further evaluation and management of the COPD.
[2018-08-13] MEDS: CARDIZEM PO SCH ×2 (15:00→22:44)
--- NOTE | 2018-08-13 16:26 | Progress Note ---
Assessment and Plan Assessment and plan: Diastolic CHF -Continue IV Lasix, carvedilol, STALIN inhibitor -Monitor input and output -Cardiology consult appreciated Cor pulmonale Pulmonary hypertension - Continue tadalafil - Pulmonary consult Schizophrenia - Continue home medications Diabetes mellitus - Sliding scale insulin, is on insulin, ADA diet, Accu-Chek DVT Prophylaxis - on Lovenox Disposition - continue inpatient care History Interval history: Patient was seen and evaluated this morning, patient's shortness of breath and swelling is getting better. Hospitalist Physical - Physical exam Narrative exam: Not in cardiopulmonary distress. The patient appeared well nourished and normally developed. Vital signs as documented. Head exam is unremarkable. No scleral icterus . Neck is without jugular venous distension, thyromegaly, or carotid bruits. Lungs are clear to auscultation. Cardiac exam reveals regular rate and Rhythm. Abdominal exam reveals normal bowel sounds. Extremities are trace bilateral lower extremity edema. 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 No focal weakness. - Constitutional Vitals: Temp Pulse Resp BP Pulse Ox 98.9 F 94 H 18 82/39 93 08/13/18 15:57 08/13/18 15:57 08/13/18 15:57 08/13/18 15:57 08/13/18 15:57 General appearance: Present: no acute distress Results - Labs CBC & Chem 7: 08/13/18 05:21 08/13/18 05:21 Labs: Laboratory Last Values WBC 5.5 K/mm3 (4.5-11.0) 08/13/18 05:21 RBC 5.23 M/mm3 (3.65-5.03) H 08/13/18 05:21 Hgb 11.9 gm/dl (10.1-14.3) 08/13/18 05:21 Hct 38.9 % (30.3-42.9) 08/13/18 05:21 MCV 74 fl (79-97) L 08/13/18 05:21 MCH 23 pg (28-32) L 08/13/18 05:21 MCHC 31 % (30-34) 08/13/18 05:21 RDW 21.3 % (13.2-15.2) H 08/13/18 05:21 Plt Count 312 K/mm3 (140-440) 08/13/18 05:21 Lymph % (Auto) 15.7 % (13.4-35.0) 08/13/18 05:21 [place] % (Auto) 14.8 % (0.0-7.3) H 08/13/18 05:21 Eos % (Auto) 2.6 % (0.0-4.3) 08/13/18 05:21 Baso % (Auto) 0.5 % (0.0-1.8) 08/13/18 05:21 Lymph # 0.9 K/mm3 (1.2-5.4) L 08/13/18 05:21 [place] # 0.8 K/mm3 (0.0-0.8) 08/13/18 05:21 Eos # 0.1 K/mm3 (0.0-0.4) 08/13/18 05:21 Baso # 0.0 K/mm3 (0.0-0.1) 08/13/18 05:21 Seg Neutrophils % 66.4 % (40.0-70.0) 08/13/18 05:21 Seg Neutrophils # 3.6 K/mm3 (1.8-7.7) 08/13/18 05:21 PT 15.2 Sec. (12.2-14.9) H 08/12/18 14:22 INR 1.13 (0.87-1.13) 08/12/18 14:22 APTT 33.2 Sec. (24.2-36.6) 08/12/18 14:22 Sodium 136 mmol/L (137-145) L 08/13/18 05:21 Potassium 3.6 mmol/L (3.6-5.0) 08/13/18 05:21 Chloride 94.3 mmol/L (98-107) L 08/13/18 05:21 Carbon Dioxide 29 mmol/L (22-30) 08/13/18 05:21 Anion Gap 16 mmol/L 08/13/18 05:21 BUN 8 mg/dL (7-17) 08/13/18 05:21 Creatinine 0.7 mg/dL (0.7-1.2) 08/13/18 05:21 Estimated GFR > 60 ml/min 08/13/18 05:21 BUN/Creatinine Ratio 11 % 08/13/18 05:21 Glucose 101 mg/dL (65-100) H 08/13/18 05:21 Calcium 8.5 mg/dL (8.4-10.2) 08/13/18 05:21 Magnesium 1.80 mg/dL (1.7-2.3) 08/12/18 21:05 Total Bilirubin 1.00 mg/dL (0.1-1.2) 08/12/18 14:22 AST 20 units/L (5-40) 08/12/18 14:22 ALT 9 units/L (7-56) 08/12/18 14:22 Alkaline Phosphatase 144 units/L (35-129) H 08/12/18 14:22 Total Creatine Kinase 57 units/L (30-135) 08/12/18 14:22 CK-MB (CK-2) 2.4 ng/mL (0.0-4.0) 08/12/18 14:22 CK-MB (CK-2) Rel Index 4.2 (0-4) H 08/12/18 14:22 Troponin T < 0.010 ng/mL (0.00-0.029) 08/12/18 20:31 NT-Pro-B Natriuret Pep 2915 pg/mL (0-900) H 08/12/18 21:05 Total Protein 6.9 g/dL (6.3-8.2) 08/12/18 14:22 Albumin 3.6 g/dL (3.9-5) L 08/12/18 14:22 Albumin/Globulin Ratio 1.1 % 08/12/18 14:22 Digoxin 0.4 ng/mL (0.9-2.0) L 08/12/18 21:05 Active Medications - Current Medications Current Medications: Generic Name Dose Route Start Last Admin Trade Name Freq PRN Reason Stop Dose Admin Acetaminophen 650 mg 08/12/18 22:59 Tylenol PO Q4H PRN Pain MILD(1-3)/Fever >100.5/[place] Allopurinol 300 mg 08/13/18 22:00 Zyloprim PO QHS [facility] Aspirin 81 mg 08/13/18 10:00 08/13/18 10:59 Baby Aspirin PO 81 mg QDAY [facility] Administration Benztropine Mesylate 2 mg 08/13/18 10:00 08/13/18 10:59 Cogentin PO 2 mg BID [facility] Administration Cholecalciferol 2,000 unit 08/13/18 10:00 08/13/18 10:59 Vitamin D3 PO 2,000 unit QDAY [facility] Administration Digoxin 0.125 mg 08/14/18 17:00 Lanoxin PO Q48H [facility] Diltiazem HCl 60 mg 08/13/18 15:00 Cardizem PO Q8H [facility] Enoxaparin Sodium 40 mg 08/13/18 10:00 08/13/18 10:59 Lovenox SUB-Q 40 mg QDAY [facility] Administration Furosemide 40 mg 08/13/18 06:00 08/13/18 06:17 Lasix IV 40 mg BID@0600,1800 [facility] Administration Haloperidol 10 mg 08/13/18 22:00 Haldol PO QHS [facility] Lisinopril 2.5 mg 08/13/18 08:00 08/13/18 12:32 Zestril PO 2.5 mg QDAY@0800 [facility] Administration Miscellaneous Medication 10 mg 08/13/18 10:00 Ambrisentan [Letairis] PO QAM [facility] Miscellaneous Medication 40 mg 08/13/18 22:00 Tadalafil (Nf) PO QHS [facility] Multivitamins 1 each 08/13/18 10:00 08/13/18 10:59 Theragran Tab PO 1 each DAILY [facility] Administration Ondansetron HCl 4 mg 08/12/18 22:59 Zofran IV Q8H PRN Nausea And Vomiting Pantoprazole Sodium 40 mg 08/13/18 10:00 08/13/18 10:59 Protonix PO 40 mg QDAY [facility] Administration Paroxetine HCl 10 mg 08/13/18 10:00 08/13/18 12:32 Paxil PO 10 mg DAILY [facility] Administration Sodium Chloride 10 ml 08/13/18 10:00 08/13/18 10:59 Sodium Chloride Flush Syringe 10 Ml IV 10 ml BID [facility] Administration Sodium Chloride 10 ml 08/12/18 22:59 Sodium Chloride Flush Syringe 10 Ml IV PRN PRN LINE FLUSH
[2018-08-13] MEDS: ZYLOPRIM PO SCH (21:49)
[2018-08-13] MEDS: HALDOL PO SCH (21:49)
[2018-08-13] MEDS: AMBRISENTAN 10 MG PO SCH (21:50)
[2018-08-13] MEDS: RIOCIGUAT 2.5 MG PO SCH (21:51)
[2018-08-13] MEDS ORDERED: NON-FORMULARY (Tadalafil (Nf) 40 MG) PO SCH (22:00)
[2018-08-13] MEDS ORDERED: RIOCIGUAT 2.5 MG PO SCH (22:00)
[2018-08-14 06:15] LABS: BUN/Creatinine Ratio 13; Blood Urea Nitrogen 9 mg/dL (7-17); Calcium 8.4 mg/dL (8.4-10.2); Hemolysis Index 3
[2018-08-14] MEDS: LASIX IV SCH ×2 (06:28→17:27)
[2018-08-14] MEDS: CARDIZEM PO SCH ×3 (08:55→22:01)
[2018-08-14] MEDS: RIOCIGUAT 2.5 MG PO SCH ×3 (08:57→21:00)
[2018-08-14] MEDS: ZESTRIL PO SCH (09:00)
[2018-08-14] MEDS: PROTONIX PO SCH (09:01)
[2018-08-14] MEDS: PAXIL PO SCH (09:01)
[2018-08-14] MEDS: LOVENOX SUB-Q SCH (09:01)
[2018-08-14] MEDS: VITAMIN D3 PO SCH (09:01)
[2018-08-14] MEDS: COGENTIN PO SCH ×2 (09:02→21:47)
[2018-08-14] MEDS: BABY ASPIRIN PO SCH (09:02)
[2018-08-14] MEDS: SODIUM CHLORIDE FLUSH SYRINGE 10 ML IV SCH ×2 (09:02→21:47)
[2018-08-14] MEDS: THERAGRAN Tab PO SCH (09:02)
[2018-08-14] MEDS ORDERED: K-DUR PO ONE (10:00)
--- NOTE | 2018-08-14 10:34 | Progress Note ---
Assessment and Plan COPD exacerbation Cor pulmonale Severe Pulmonary Htn Rheumatoid arthritis Multifocal atrial tachycardia RBBB, chronic LHC in 2017 that demonstrated nonobstructive, essentially normal coronary arteries ejection fraction 55%. RHC 02/2018 revealed severe elevated pulmonary artery pressure with a mean PA pressure of 58 mmHg. Echocardiogram this admission shows that most of her cardiomegaly involves severe dilatation of the right heart chambers, the right ventricle is [place] forming, there is flattening of the intra-atrial septum, at least moderate cusp regurgitation and moderate to severe pulmonary hypertension with right ventricular systolic pressure of 56. Conversely, left ventricular chamber size and systolic function are normal with ejection fraction 50-55%. There is a [id number] degree of mitral valve prolapse, with mild to moderate mitral regurgitation. Recommendations: Continue Cardizem for suppression of multifocal atrial tachycardia. Pulmonary consultation for further evaluation and management of the COPD. Subjective Date of service: 08/14/18 Interval history: Patient is resting in bed comfortably. No distress noted. Objective Vital Signs Temp Pulse Resp BP BP Pulse Ox 08/14/18 09:15 96 08/14/18 08:55 89 107/61 08/14/18 08:28 98.2 F 89 16 107/61 93 08/14/18 04:29 98.0 F 85 18 94/43 85 08/14/18 00:11 88 23 146/97 100 08/14/18 00:03 139/82 08/13/18 22:34 98.0 F 96 H 18 109/61 91 08/13/18 21:06 94 08/13/18 21:03 97 H 08/13/18 20:17 0 L 139/82 08/13/18 20:11 16 139/82 08/13/18 20:03 159 H 120 H 139/82 08/13/18 20:02 85 H 08/13/18 19:32 98.0 F 99 H 20 86/34 91 08/13/18 16:36 97 H 16 93/45 94 08/13/18 16:31 98 H 16 87/47 91 08/13/18 15:57 98.9 F 94 H 18 82/39 93 08/13/18 13:10 0 L 08/13/18 13:01 0 L 08/13/18 12:51 32 L 16 08/13/18 12:41 94 H 15 08/13/18 12:39 24 04/09/19 12:06 99.4 F 98 H 16 101/63 90 - Physical Examination HEENT: Positive: PERRL Cardiac: Positive: Irregularly Regular Lungs: Positive: Decreased Breath Sounds Neuro: Positive: Grossly Intact Extremities: Absent: edema - Labs and Meds Comprehensive Metabolic Panel 08/14/18 Range/Units 04:57 Sodium 132 L (137-145) mmol/L Potassium 3.2 L (3.6-5.0) mmol/L Chloride 90.7 L (98-107) mmol/L Carbon Dioxide 29 (22-30) mmol/L BUN 9 (7-17) mg/dL Creatinine 0.7 (0.7-1.2) mg/dL Glucose 98 (65-100) mg/dL Calcium 8.4 (8.4-10.2) mg/dL
--- NOTE | 2018-08-14 14:00 | Event Note ---
Date: 08/14/18 Consulted by [facility] for Pulmonary Hypertension. Patient's PAH is managed by [facility] (Dr. Brush). if changes or help needed suggest reaching out to him. [facility] is following and Trudi has seen the patient today. Will sign off.
--- NOTE | 2018-08-14 15:30 | Progress Note ---
Assessment and Plan Assessment and plan: Diastolic CHF, -Continue IV Lasix, carvedilol, STALIN inhibitor -Monitor input and output -Cardiology consult appreciated Cor pulmonale Pulmonary hypertension - Continue tadalafil - management per cardiology Schizophrenia - Continue home medications Diabetes mellitus - Sliding scale insulin, is on insulin, ADA diet, Accu-Chek DVT Prophylaxis - on Lovenox Disposition -cardiology recommends a day of IV lasix History Interval history: Patient was seen and evaluated this morning, patient's shortness of breath and swelling is getting better. Hospitalist Physical - Physical exam Narrative exam: Not in cardiopulmonary distress. The patient appeared well nourished and normally developed. Vital signs as documented. Head exam is unremarkable. No scleral icterus . Neck is without jugular venous distension, thyromegaly, or carotid bruits. Lungs are clear to auscultation. Cardiac exam reveals regular rate and Rhythm. Abdominal exam reveals normal bowel sounds. Extremities are trace bilateral lower extremity edema. 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 No focal weakness. - Constitutional Vitals: Temp Pulse Resp BP Pulse Ox 98.2 F 90 16 107/61 96 08/14/18 08:28 08/14/18 14:54 08/14/18 08:28 08/14/18 08:55 08/14/18 09:15 General appearance: Present: no acute distress Results - Labs CBC & Chem 7: 08/13/18 05:21 08/14/18 04:57 Labs: Laboratory Last Values WBC 5.5 K/mm3 (4.5-11.0) 08/13/18 05:21 RBC 5.23 M/mm3 (3.65-5.03) H 08/13/18 05:21 Hgb 11.9 gm/dl (10.1-14.3) 08/13/18 05:21 Hct 38.9 % (30.3-42.9) 08/13/18 05:21 MCV 74 fl (79-97) L 08/13/18 05:21 MCH 23 pg (28-32) L 08/13/18 05:21 MCHC 31 % (30-34) 08/13/18 05:21 RDW 21.3 % (13.2-15.2) H 08/13/18 05:21 Plt Count 312 K/mm3 (140-440) 08/13/18 05:21 Lymph % (Auto) 15.7 % (13.4-35.0) 08/13/18 05:21 [place] % (Auto) 14.8 % (0.0-7.3) H 08/13/18 05:21 Eos % (Auto) 2.6 % (0.0-4.3) 08/13/18 05:21 Baso % (Auto) 0.5 % (0.0-1.8) 08/13/18 05:21 Lymph # 0.9 K/mm3 (1.2-5.4) L 08/13/18 05:21 [place] # 0.8 K/mm3 (0.0-0.8) 08/13/18 05:21 Eos # 0.1 K/mm3 (0.0-0.4) 08/13/18 05:21 Baso # 0.0 K/mm3 (0.0-0.1) 08/13/18 05:21 Seg Neutrophils % 66.4 % (40.0-70.0) 08/13/18 05:21 Seg Neutrophils # 3.6 K/mm3 (1.8-7.7) 08/13/18 05:21 PT 15.2 Sec. (12.2-14.9) H 08/12/18 14:22 INR 1.13 (0.87-1.13) 08/12/18 14:22 APTT 33.2 Sec. (24.2-36.6) 08/12/18 14:22 Sodium 132 mmol/L (137-145) L 08/14/18 04:57 Potassium 3.2 mmol/L (3.6-5.0) L 08/14/18 04:57 Chloride 90.7 mmol/L (98-107) L 08/14/18 04:57 Carbon Dioxide 29 mmol/L (22-30) 08/14/18 04:57 Anion Gap 16 mmol/L 08/14/18 04:57 BUN 9 mg/dL (7-17) 08/14/18 04:57 Creatinine 0.7 mg/dL (0.7-1.2) 08/14/18 04:57 Estimated GFR > 60 ml/min 08/14/18 04:57 BUN/Creatinine Ratio 13 % 08/14/18 04:57 Glucose 98 mg/dL (65-100) 08/14/18 04:57 Calcium 8.4 mg/dL (8.4-10.2) 08/14/18 04:57 Magnesium 1.80 mg/dL (1.7-2.3) 08/12/18 21:05 Total Bilirubin 1.00 mg/dL (0.1-1.2) 08/12/18 14:22 AST 20 units/L (5-40) 08/12/18 14:22 ALT 9 units/L (7-56) 08/12/18 14:22 Alkaline Phosphatase 144 units/L (35-129) H 08/12/18 14:22 Total Creatine Kinase 57 units/L (30-135) 08/12/18 14:22 CK-MB (CK-2) 2.4 ng/mL (0.0-4.0) 08/12/18 14:22 CK-MB (CK-2) Rel Index 4.2 (0-4) H 08/12/18 14:22 Troponin T < 0.010 ng/mL (0.00-0.029) 08/12/18 20:31 NT-Pro-B Natriuret Pep 2915 pg/mL (0-900) H 08/12/18 21:05 Total Protein 6.9 g/dL (6.3-8.2) 08/12/18 14:22 Albumin 3.6 g/dL (3.9-5) L 08/12/18 14:22 Albumin/Globulin Ratio 1.1 % 08/12/18 14:22 Digoxin 0.4 ng/mL (0.9-2.0) L 08/12/18 21:05 Active Medications - Current Medications Current Medications: Generic Name Dose Route Start Last Admin Trade Name Freq PRN Reason Stop Dose Admin Acetaminophen 650 mg 08/12/18 22:59 Tylenol PO Q4H PRN Pain MILD(1-3)/Fever >100.5/NYE Allopurinol 300 mg 08/13/18 22:00 08/13/18 21:49 Zyloprim PO 300 mg QHS SIVAN Administration Aspirin 81 mg 08/13/18 10:00 08/14/18 09:02 Baby Aspirin PO 81 mg QDAY SIVAN Administration Benztropine Mesylate 2 mg 08/13/18 10:00 08/14/18 09:02 Cogentin PO 2 mg BID SIVAN Administration Cholecalciferol 2,000 unit 08/13/18 10:00 08/14/18 09:01 Vitamin D3 PO 2,000 unit QDAY SIVAN Administration Digoxin 0.125 mg 08/14/18 17:00 Lanoxin PO Q48H SIVAN Diltiazem HCl 60 mg 08/13/18 15:00 08/14/18 14:54 Cardizem PO 60 mg Q8H SIVAN Administration Enoxaparin Sodium 40 mg 08/13/18 10:00 08/14/18 09:01 Lovenox SUB-Q 40 mg QDAY SIVAN Administration Furosemide 40 mg 08/13/18 06:00 08/14/18 06:28 Lasix IV 40 mg BID@0600,1800 [facility] Administration Haloperidol 10 mg 08/13/18 22:00 08/13/18 21:49 Haldol PO 10 mg QHS SIVAN Administration Lisinopril 2.5 mg 08/13/18 08:00 08/14/18 09:00 Zestril PO 2.5 mg QDAY@0800 SIVAN Administration Miscellaneous Medication 2.5 mg 08/13/18 22:00 08/14/18 14:55 Riociguat PO 2.5 mg TID SIVAN Administration Miscellaneous Medication 10 mg 08/13/18 22:00 08/13/18 21:50 Ambrisentan PO 10 mg HS SIVAN Administration Multivitamins 1 each 08/13/18 10:00 08/14/18 09:02 Theragran Tab PO 1 each DAILY SIVAN Administration Ondansetron HCl 4 mg 08/12/18 22:59 Zofran IV Q8H PRN Nausea And Vomiting Pantoprazole Sodium 40 mg 08/13/18 10:00 08/14/18 09:01 Protonix PO 40 mg QDAY SIVAN Administration Paroxetine HCl 10 mg 08/13/18 10:00 08/14/18 09:01 Paxil PO 10 mg DAILY SIVAN Administration Sodium Chloride 10 ml 08/13/18 10:00 08/14/18 09:02 Sodium Chloride Flush Syringe 10 Ml IV 10 ml BID SIVAN Administration Sodium Chloride 10 ml 08/12/18 22:59 Sodium Chloride Flush Syringe 10 Ml IV PRN PRN LINE FLUSH
[2018-08-14] MEDS ORDERED: LANOXIN PO SCH (17:00)
[2018-08-14] MEDS ORDERED: NACL 0.9% 1000 ML 500 ML IV ONE (20:46)
[2018-08-14] MEDS: HALDOL PO SCH (21:47)
[2018-08-14] MEDS: ZYLOPRIM PO SCH (21:47)
[2018-08-14] MEDS: AMBRISENTAN 10 MG PO SCH (21:48)
[2018-08-14] MEDS ORDERED: NACL 0.9% 500 ML 500 ML IV ONE (22:00)
[2018-08-15 05:56] LABS: Calcium 8.4 mg/dL (8.4-10.2)
[2018-08-15] MEDS: CARDIZEM PO SCH ×4 (06:11→22:08)
[2018-08-15] MEDS: LASIX IV SCH ×2 (06:11→18:55)
[2018-08-15] MEDS: RIOCIGUAT 2.5 MG PO SCH ×3 (08:00→22:07)
[2018-08-15] MEDS: ZESTRIL PO SCH (08:23)
--- NOTE | 2018-08-15 09:55 | Progress Note ---
Assessment and Plan COPD exacerbation Cor pulmonale Severe Pulmonary Htn on [place] and Letairis Hyponatremia Rheumatoid arthritis Multifocal atrial tachycardia RBBB, chronic LHC in 2017 that demonstrated nonobstructive, essentially normal coronary arteries ejection fraction 55%. RHC 02/2018 revealed severe elevated pulmonary artery pressure with a mean PA pressure of 58 mmHg. Echocardiogram this admission shows that most of her cardiomegaly involves severe dilatation of the right heart chambers, the right ventricle is [place] forming, there is flattening of the intra-atrial septum, at least moderate cusp regurgitation and moderate to severe pulmonary hypertension with right ventricular systolic pressure of 56. Conversely, left ventricular chamber size and systolic function are normal with ejection fraction 50-55%. There is a [id number] degree of mitral valve prolapse, with mild to moderate mitral regurgitation. Recommendations: Continue Digoxin and Cardizem for suppression of multifocal atrial tachycardia. Patient advised of fluid intake to 1 L per day. Restrict access to ice too. Subjective Date of service: 08/15/18 Interval history: Patient is resting in bed comfortably. She reports her breathing is better. Objective Vital Signs Temp Pulse Resp BP BP Pulse Ox 08/15/18 08:24 97.9 F 95 H 18 94/43 91 08/15/18 04:25 98.0 F 91 H 18 75/37 90 08/15/18 01:00 80 87/41 08/15/18 00:33 98.0 F 75 18 73/36 91 08/14/18 22:01 72 74/27 08/14/18 22:00 82 95 08/14/18 20:29 79 74/27 89 08/14/18 19:22 98.2 F 78 18 62/33 92 08/14/18 17:27 84 84/52 08/14/18 17:13 77 82/42 80 L 08/14/18 15:51 98.1 F 73 18 84/41 91 08/14/18 14:54 90 08/14/18 13:28 97.4 F L 85 18 95/47 90 08/14/18 10:00 98 H - Physical Examination General: No Apparent Distress HEENT: Positive: PERRL Neck: Positive: trachea midline Cardiac: Positive: Irregularly Regular Lungs: Positive: Decreased Breath Sounds Neuro: Positive: Grossly Intact Extremities: Absent: edema - Labs and Meds Comprehensive Metabolic Panel 08/15/18 Range/Units 04:35 Sodium 131 L (137-145) mmol/L Potassium 4.1 D (3.6-5.0) mmol/L Chloride 90.2 L (98-107) mmol/L Carbon Dioxide 29 (22-30) mmol/L BUN 14 (7-17) mg/dL Creatinine 1.3 H D (0.7-1.2) mg/dL Glucose 89 (65-100) mg/dL Calcium 8.4 (8.4-10.2) mg/dL
[2018-08-15] MEDS: THERAGRAN Tab PO SCH (10:22)
[2018-08-15] MEDS: BABY ASPIRIN PO SCH (10:22)
[2018-08-15] MEDS: PROTONIX PO SCH (10:22)
[2018-08-15] MEDS: LOVENOX SUB-Q SCH (10:22)
[2018-08-15] MEDS: VITAMIN D3 PO SCH (10:22)
[2018-08-15] MEDS: COGENTIN PO SCH ×2 (10:50→22:07)
[2018-08-15] MEDS: PAXIL PO SCH (10:50)
[2018-08-15] MEDS: SODIUM CHLORIDE FLUSH SYRINGE 10 ML IV SCH ×2 (10:52→22:08)
--- NOTE | 2018-08-15 15:20 | Progress Note ---
Assessment and Plan Assessment and plan: Chronic respiratory failure; patient was on 4 L of oxygen at home Diastolic CHF, - held IV Lasix, carvedilol, STALIN inhibitor because of hypotension -Monitor input and output -Cardiology consult appreciated Cor pulmonale Pulmonary hypertension - Continue tadalafil - management per cardiology Schizophrenia - Continue home medications Diabetes mellitus - Sliding scale insulin, is on insulin, ADA diet, Accu-Chek Multifocal atrial tachycardia -Continue Cardizem Hypotension - Held all the bp meds and will monitor DVT Prophylaxis - on Lovenox Disposition -Possible DC in Am if continue to be stable History Interval history: Patient was seen and evaluated this morning, patient didn't have any Complaints. Hospitalist Physical - Physical exam Narrative exam: Not in cardiopulmonary distress. The patient appeared well nourished and normally developed. Vital signs as documented. Head exam is unremarkable. No scleral icterus . Neck is without jugular venous distension, thyromegaly, or carotid bruits. Lungs are clear to auscultation. Cardiac exam reveals regular rate and Rhythm. Abdominal exam reveals normal bowel sounds. Extremities are trace bilateral lower extremity edema. 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 No focal weakness. - Constitutional Vitals: Temp Pulse Resp BP Pulse Ox 97.9 F 86 18 94/43 94 08/15/18 08:24 08/15/18 10:00 08/15/18 08:24 08/15/18 08:24 08/15/18 10:00 General appearance: Present: no acute distress Results - Labs CBC & Chem 7: 08/13/18 05:21 08/15/18 04:35 Labs: Laboratory Last Values WBC 5.5 K/mm3 (4.5-11.0) 08/13/18 05:21 RBC 5.23 M/mm3 (3.65-5.03) H 08/13/18 05:21 Hgb 11.9 gm/dl (10.1-14.3) 08/13/18 05:21 Hct 38.9 % (30.3-42.9) 08/13/18 05:21 MCV 74 fl (79-97) L 08/13/18 05:21 MCH 23 pg (28-32) L 08/13/18 05:21 MCHC 31 % (30-34) 08/13/18 05:21 RDW 21.3 % (13.2-15.2) H 08/13/18 05:21 Plt Count 312 K/mm3 (140-440) 08/13/18 05:21 Lymph % (Auto) 15.7 % (13.4-35.0) 08/13/18 05:21 [place] % (Auto) 14.8 % (0.0-7.3) H 08/13/18 05:21 Eos % (Auto) 2.6 % (0.0-4.3) 08/13/18 05:21 Baso % (Auto) 0.5 % (0.0-1.8) 08/13/18 05:21 Lymph # 0.9 K/mm3 (1.2-5.4) L 08/13/18 05:21 [place] # 0.8 K/mm3 (0.0-0.8) 08/13/18 05:21 Eos # 0.1 K/mm3 (0.0-0.4) 08/13/18 05:21 Baso # 0.0 K/mm3 (0.0-0.1) 08/13/18 05:21 Seg Neutrophils % 66.4 % (40.0-70.0) 08/13/18 05:21 Seg Neutrophils # 3.6 K/mm3 (1.8-7.7) 08/13/18 05:21 PT 15.2 Sec. (12.2-14.9) H 08/12/18 14:22 INR 1.13 (0.87-1.13) 08/12/18 14:22 APTT 33.2 Sec. (24.2-36.6) 08/12/18 14:22 Sodium 131 mmol/L (137-145) L 08/15/18 04:35 Potassium 4.1 mmol/L (3.6-5.0) D 08/15/18 04:35 Chloride 90.2 mmol/L (98-107) L 08/15/18 04:35 Carbon Dioxide 29 mmol/L (22-30) 08/15/18 04:35 Anion Gap 16 mmol/L 08/15/18 04:35 BUN 14 mg/dL (7-17) 08/15/18 04:35 Creatinine 1.3 mg/dL (0.7-1.2) H D 08/15/18 04:35 Estimated GFR 50 ml/min 08/15/18 04:35 BUN/Creatinine Ratio 11 % 08/15/18 04:35 Glucose 89 mg/dL (65-100) 08/15/18 04:35 Calcium 8.4 mg/dL (8.4-10.2) 08/15/18 04:35 Magnesium 1.80 mg/dL (1.7-2.3) 08/12/18 21:05 Total Bilirubin 1.00 mg/dL (0.1-1.2) 08/12/18 14:22 AST 20 units/L (5-40) 08/12/18 14:22 ALT 9 units/L (7-56) 08/12/18 14:22 Alkaline Phosphatase 144 units/L (35-129) H 08/12/18 14:22 Total Creatine Kinase 57 units/L (30-135) 08/12/18 14:22 CK-MB (CK-2) 2.4 ng/mL (0.0-4.0) 08/12/18 14:22 CK-MB (CK-2) Rel Index 4.2 (0-4) H 08/12/18 14:22 Troponin T < 0.010 ng/mL (0.00-0.029) 08/12/18 20:31 NT-Pro-B Natriuret Pep 2915 pg/mL (0-900) H 08/12/18 21:05 Total Protein 6.9 g/dL (6.3-8.2) 08/12/18 14:22 Albumin 3.6 g/dL (3.9-5) L 08/12/18 14:22 Albumin/Globulin Ratio 1.1 % 08/12/18 14:22 Digoxin 0.4 ng/mL (0.9-2.0) L 08/12/18 21:05 Active Medications - Current Medications Current Medications: Generic Name Dose Route Start Last Admin Trade Name Freq PRN Reason Stop Dose Admin Acetaminophen 650 mg 08/12/18 22:59 Tylenol PO Q4H PRN Pain MILD(1-3)/Fever >100.5/NYE Allopurinol 300 mg 08/13/18 22:00 08/14/18 21:47 Zyloprim PO 300 mg QHS SIVAN Administration Aspirin 81 mg 08/13/18 10:00 08/15/18 10:22 Baby Aspirin PO 81 mg QDAY SIVAN Administration Benztropine Mesylate 2 mg 08/13/18 10:00 08/14/18 21:47 Cogentin PO 2 mg BID SIVAN Administration Cholecalciferol 2,000 unit 08/13/18 10:00 08/15/18 10:22 Vitamin D3 PO 2,000 unit QDAY SIVAN Administration Digoxin 0.125 mg 08/14/18 17:00 08/14/18 17:27 Lanoxin PO 0.125 mg Q48H SIVAN Administration Diltiazem HCl 60 mg 08/13/18 15:00 08/15/18 06:11 Cardizem PO Not Given Q8H SIVAN Enoxaparin Sodium 40 mg 08/13/18 10:00 08/15/18 10:22 Lovenox SUB-Q 40 mg QDAY SIVAN Administration Furosemide 40 mg 08/13/18 06:00 08/15/18 06:11 Lasix IV Not Given BID@0600,1800 SIVAN Haloperidol 10 mg 08/13/18 22:00 08/14/18 21:47 Haldol PO 10 mg QHS SVIAN Administration Lisinopril 2.5 mg 08/13/18 08:00 08/15/18 08:23 Zestril PO Not Given QDAY@0800 SIVAN Miscellaneous Medication 2.5 mg 08/13/18 22:00 08/14/18 21:00 Riociguat PO 2.5 mg TID SIVAN Administration Miscellaneous Medication 10 mg 08/13/18 22:00 08/14/18 21:48 Ambrisentan PO 10 mg HS SIVAN Administration Multivitamins 1 each 08/13/18 10:00 08/15/18 10:22 Theragran Tab PO 1 each DAILY SIVAN Administration Ondansetron HCl 4 mg 08/12/18 22:59 Zofran IV Q8H PRN Nausea And Vomiting Pantoprazole Sodium 40 mg 08/13/18 10:00 08/15/18 10:22 Protonix PO 40 mg QDAY SIVAN Administration Paroxetine HCl 10 mg 08/13/18 10:00 08/14/18 09:01 Paxil PO 10 mg DAILY SIVAN Administration Sodium Chloride 10 ml 08/13/18 10:00 08/14/18 21:47 Sodium Chloride Flush Syringe 10 Ml IV 10 ml BID SIVAN Administration Sodium Chloride 10 ml 08/12/18 22:59 Sodium Chloride Flush Syringe 10 Ml IV PRN PRN LINE FLUSH
[2018-08-15] MEDS: HALDOL PO SCH (22:07)
[2018-08-15] MEDS: ZYLOPRIM PO SCH (22:07)
[2018-08-15] MEDS: AMBRISENTAN 10 MG PO SCH (22:07)
[2018-08-16] MEDS: LASIX IV SCH (05:21)
[2018-08-16] MEDS: CARDIZEM PO SCH (06:47)
[2018-08-16] MEDS: RIOCIGUAT 2.5 MG PO SCH ×2 (08:37→16:23)
[2018-08-16] MEDS: ZESTRIL PO SCH (08:38)
--- NOTE | 2018-08-16 09:23 | Discharge Summary ---
Providers - Providers Date of Admission: 08/12/18 22:19 Attending physician: DAILY WHALEY MD 08/12/18 21:01 Consult to Physician [CONS] Urgent Comment: Consulting Provider: LIZBETH MUIR Physician Instructions: Reason For Exam: chf 08/13/18 16:15 Consult to Physician [CONS] Routine Comment: Consulting Provider: LADAN ALANIZ Physician Instructions: Reason For Exam: Cor pulmonale, pulmonary HTN Primary care physician: LIZBETH MUIR Hospitalization Reason for admission: Severe pulm HTN, CHF exacerbation Condition: Fair Pertinent studies: Chest XR IMPRESSION: 1. Enlarged cardiac silhouette with bilateral interstitial and airspace process and evidence of pulmonary venous congestion. This is most suggestive of CHF. A component of an infectious process cannot entirely be excluded. ECHO; corpulmonale with enalrged right heart chamber Hospital course: 62-year-old woman is here for hypertension, diabetes, schizophrenia, CHF, pulmonary hypertension comes emergency room with complaints of shortness of breath, swelling of her legs, weight gain 1 week. She is noncompliant with fluid intake Chronic respiratory failure; patient was on 4 L of oxygen at home Diastolic CHF, treated with IV lasix Cor pulmonale Pulmonary hypertension; continue home medications. Cardiology was following her. Patient showed improvement and discharged home in a stable condition. Discussed with the patient and her mother. Patient has been a supply of medications at home and has home oxygen. Disposition: - TO HOME OR SELFCARE Time spent for discharge: 32 minutes - Discharge Diagnoses (1) Anasarca Status: Acute (2) Cardiomyopathy Status: Acute (3) Cor pulmonale Status: Acute (4) Dyspnea Status: Acute (5) Hypoxia Status: Acute (6) Pleural effusion Status: Acute (7) Pulmonary hypertension Status: Acute (8) Chronic renal insufficiency Status: Acute (9) Polyarticular arthritis Status: Acute (10) Rheumatoid arthritis flare Status: Acute (11) Smoking history Status: Acute (12) Tricuspid regurgitation Status: Acute (13) Type 2 diabetes mellitus Status: Acute Core Measure Documentation - Palliative Care Palliative Care/ Comfort Measures: Not Applicable - Core Measures Any of the following diagnoses?: none Exam - Physical Exam Narrative exam: Not in cardiopulmonary distress. The patient appeared well nourished and normally developed. Vital signs as documented. Head exam is unremarkable. No scleral icterus . Neck is without jugular venous distension, thyromegaly, or carotid bruits. Lungs are clear to auscultation. Cardiac exam reveals regular rate and Rhythm. Abdominal exam reveals normal bowel sounds. Extremities are trace bilateral lower extremity edema. 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 No focal weakness. - Constitutional Vitals: Temp Pulse Resp BP Pulse Ox 97.9 F 104 H 18 114/68 94 08/16/18 08:45 08/16/18 08:45 08/16/18 08:45 08/16/18 08:45 08/16/18 08:45 Plan Activity: no restrictions Weight Bearing Status: Full Weight Bearing Diet: low salt Special Instructions: restrict fluid intake to (1litre a day) Follow up with: LIZBETH MUIR MD [Primary Care Provider] - 3-5 Days Prescriptions: Torsemide [Demadex] 20 mg PO DAILY #30 tablet
[2018-08-16] MEDS: VITAMIN D3 PO SCH (10:00)
[2018-08-16] MEDS: BABY ASPIRIN PO SCH (10:26)
[2018-08-16] MEDS: LOVENOX SUB-Q SCH (10:27)
[2018-08-16] MEDS: PROTONIX PO SCH (10:32)
[2018-08-16] MEDS: THERAGRAN Tab PO SCH (10:36)
[2018-08-16] MEDS: SODIUM CHLORIDE FLUSH SYRINGE 10 ML IV SCH (10:36)
[2018-08-16] MEDS: COGENTIN PO SCH (10:37)
[2018-08-16] MEDS: PAXIL PO SCH (10:37)
--- NOTE | 2018-08-16 10:41 | Progress Note ---
Assessment and Plan COPD exacerbation Cor pulmonale Severe Pulmonary Htn on [place] and Letairis Hyponatremia Rheumatoid arthritis Multifocal atrial tachycardia RBBB, chronic LHC in 2017 that demonstrated nonobstructive, essentially normal coronary arteries ejection fraction 55%. RHC 02/2018 revealed severe elevated pulmonary artery pressure with a mean PA pressure of 58 mmHg. Echocardiogram this admission shows that most of her cardiomegaly involves severe dilatation of the right heart chambers, the right ventricle is [place] forming, there is flattening of the intra-atrial septum, at least moderate cusp regurgitation and moderate to severe pulmonary hypertension with right ventricular systolic pressure of 56. Conversely, left ventricular chamber size and systolic function are normal with ejection fraction 50-55%. There is a [id number] degree of mitral valve prolapse, with mild to moderate mitral regurgitation. Recommendations: Continue Digoxin and Cardizem for suppression of multifocal atrial tachycardia. Fluid restriction of 1 L per day. Stable cardiac roland for discharge. Patient will f/u with [facility] as previously scheduled. Subjective Date of service: 08/16/18 Interval history: Patient reports her breathing is better. Objective Vital Signs Temp Pulse Resp BP Pulse Ox 08/16/18 09:36 97 08/16/18 08:45 97.9 F 104 H 18 114/68 94 08/16/18 06:47 95 H 98/46 08/16/18 03:52 98.3 F 95 H 18 98/46 95 08/15/18 23:48 98.0 F 104 H 18 103/47 94 08/15/18 22:08 89 107/30 08/15/18 22:00 99 H 97 08/15/18 20:38 94 08/15/18 19:25 98.2 F 99 H 18 107/50 98 08/15/18 16:04 98.0 F 89 18 99/50 95 08/15/18 11:07 97.9 F 96 H 18 87/48 92 - Physical Examination General: No Apparent Distress HEENT: Positive: PERRL Neck: Positive: trachea midline Cardiac: Positive: Irregularly Regular Lungs: Positive: Decreased Breath Sounds Neuro: Positive: Grossly Intact Extremities: Absent: edema
[2018-08-16 10:45] VITALS: BP 104/62
== END 2018-08-16 17:42 | disposition home health service (06) | DRG 292 ==
LOC: ED 13:47 → 4A 22:19
PROVIDERS: ADMIT Internal Medicine; ATTEND Internal Medicine
DX: I11.0 Hypertensive heart disease with heart failure (principal); J44.1 Chronic obstructive pulmonary disease with (acute) exacerbation; E87.1 Hypo-osmolality and hyponatremia; J90 Pleural effusion, not elsewhere classified; J96.11 Chronic respiratory failure with hypoxia; I50.33 Acute on chronic diastolic (congestive) heart failure; I42.9 Cardiomyopathy, unspecified; I27.20 Pulmonary hypertension, unspecified; Z99.81 Dependence on supplemental oxygen; F20.9 Schizophrenia, unspecified; Z79.82 Long term (current) use of aspirin; I27.81 Cor pulmonale (chronic); Z82.49 Family history of ischemic heart disease and other diseases of the circulatory system; M06.9 Rheumatoid arthritis, unspecified; I45.10 Unspecified right bundle-branch block; R00.0 Tachycardia, unspecified; I95.9 Hypotension, unspecified
CPT/HCPCS: 36415; 71046; 80048; 80053; 80162; 82550; 82553; 83735; 83880; 84484; 85025; 85610; 85730; 93005; 93010; 93306; 94760; 96374; G0378; J1650; J1940; J7040